=== PATIENT | female | born 1995 | race Hispanic/Latino ===

== ENCOUNTER 2017-02-03 17:14 | Emergency (ER) | payer BC ==
[2017-02-03] MEDS ORDERED: Cephalexin 250 MG CAP ONE (17:48)
[2017-02-03] MEDS ORDERED: Ibuprofen 800 MG TAB ONE (17:48)
== END 2017-02-03 17:54 | disposition home or self-care (01) ==
LOC: NAV ERS 17:14
DX: T16.1XXA Foreign body in right ear, initial encounter (principal)
CPT/HCPCS: 99282

== ENCOUNTER 2021-03-05 09:09 | Emergency (ER) | payer BC, OTHER ==
[2021-03-05 09:43] LABS: Blood, Urine Large (Negative); Clarity Cloudy (Clear); Glucose, Urine (Dipstick) Negative (Negative); Leukocyte Large (Negative); Protein, Urine (Dipstick) > or equal to 300 mg/dL (Neg-Trace); pH, Urine 5.5 (5.0-9.0)
[2021-03-05 09:50] LABS: Ketone, Urine Unable to Interpret mg/dL (Negative); Nitrite Unable to Interpret (Negative)
[2021-03-05 09:51] LABS: Bilirubin Unable to Interpret (Negative); RBC/HPF Greater than 50 HPF (0-3); WBC/HPF 21-50 HPF (0-3)
[2021-03-05 09:52] LABS: Bacteria/HPF 1+ HPF (None Seen)
[2021-03-05] MEDS ORDERED: Sulfameth/Trimethoprim DS 800-160mg TAB ONE (10:10)
== END 2021-03-05 10:25 | disposition home or self-care (01) ==
LOC: NAV ERS 09:09
DX: N30.01 Acute cystitis with hematuria (principal)
CPT/HCPCS: 81003; 81015; 87077; 87086; 87186; 99283